=== PATIENT | male | born 1995 | race Caucasian/White ===

== ENCOUNTER 2016-09-19 23:16 | Emergency (ER) | payer BC ==
[2016-09-19] MEDS ORDERED: PROPARACAINE 0.5% OPHTH DROPS 15 ML BTL RIGHT EYE STA (23:55)
[2016-09-20] MEDS ORDERED: SODIUM CHLORIDE 0.9% 1,000 ML IV STA (00:09)
[2016-09-20] MEDS ORDERED: RX INFO: IV CONTRAST WAS GIVEN 1 EACH MISC MISCELLANE PRN (00:09)
--- NOTE | 2016-09-20 00:19 | ED ---
General Adult HPI - General Chief complaint: Dizziness Stated complaint: Dizzy,FB in Eye,Vomiting Time Seen by Provider: 09/19/16 23:32 Source: patient, RN notes reviewed Mode of arrival: ambulatory Limitations: no limitations - History of Present Illness Initial comments: 21-year-old male presents to the emergency department with multiple complaints. First he's noticed some irritation and itching to the right eye has been going on since Friday. Patient denies any drainage but states it's been very irritated and itchy. He complains of right lower quadrant abdominal pain. He' s had this for the last 2 days with some nausea vomiting. He did have a syncopal episode with his outside working in the heat as well. Patient states that he was concerned due to his symptoms he thought that he should be evaluated. Patient denies any fever chills cough cold. Patient states she's never had pain like this before. Patient also states that had 2 diabetic and he has not been taking his medications. Patient is concerned due to his symptoms he thought that he should be evaluated. Patient denies any recent fever , chills, shortness of breath, chest pain, back pain, nausea vomiting, numbness or tingling, dysuria or hematuria, constipation or diarrhea, headaches or visual changes, or any other current symptoms. - Related Data Home Medications Medication Instructions Recorded Confirmed Albuterol Inhaler [Ventolin Hfa 2 puff INHALATION RT-Q6H PRN 09/19/16 09/19/16 Inhaler] Atorvastatin [Lipitor] 10 mg PO HS 09/19/16 09/19/16 Levothyroxine Sodium [Synthroid] 50 mcg PO DAILY 09/19/16 09/19/16 Omeprazole [PriLOSEC] 40 mg PO DAILY PRN 09/19/16 09/19/16 metFORMIN HCL [Glucophage] 850 mg PO TID 09/19/16 09/19/16 Previous Rx's Medication Instructions Recorded Tobramycin 0.3% Ophth Oint [Tobrex 1 applic BOTH EYES TID #1 tube 09/20/16 0.3% Ophth Oint] Allergies Allergy/AdvReac Type Severity Reaction Status Date / Time amoxicillin [From Augmentin] AdvReac Nausea & Verified 09/19/16 23:32 Vomiting clavulanic acid AdvReac Nausea & Verified 09/19/16 23:32 [From Augmentin] Vomiting prednisone AdvReac Nausea & Verified 09/19/16 23:32 Vomiting Review of Systems ROS Statement: Those systems with pertinent positive or pertinent negative responses have been documented in the HPI. ROS Other: All systems not noted in ROS Statement are negative. Past Medical History Past Medical History: Diabetes Mellitus, Hyperlipidemia, Thyroid Disorder Additional Past Medical History / Comment(s): DM Type II - PO meds. History of Any Multi-Drug Resistant Organisms: None Reported Past Surgical History: Ear Surgery Additional Past Surgical History / Comment(s): oral surgery Past Psychological History: No Psychological Hx Reported Smoking Status: Current every day smoker Past Alcohol Use History: Occasional Past Drug Use History: Marijuana General Exam - General Exam Comments Initial Comments: General: The patient is awake and alert, in no distress, and does not appear acutely ill. Eye: Pupils are equal, round and reactive to light, extra-ocular movements are intact; injected conjunctivae to the right with some purulent discharge noted. No foreign body noted. brian lamp shows no acute findings. Ears, nose, mouth and throat: There are moist mucous membranes and no oral lesions. Neck: The neck is supple, there is no tenderness. Cardiovascular: There is a regular rate and rhythm. No murmur, rub or gallop is appreciated. Respiratory: Lungs are clear to auscultation, respirations are non-labored, breath sounds are equal. No wheezes, stridor, rales, or rhonchi. Gastrointestinal: Soft, non-distended, mildly tender right side of the abdomen without masses or organomegaly noted. There is no rebound or guarding present. No CVA tenderness. Bowel sounds are unremarkable. Back: There is no tenderness to palpation in the midline. There is no obvious deformity. No rashes noted. Musculoskeletal: Normal ROM, no tenderness, There is no pedal edema. There is no calf tenderness or swelling. Sensation intact. Pulses equal bilaterally 2+. Neurological: CN II-XII intact, There are no obvious motor or sensory deficits. Coordination appears grossly intact. Speech is normal. Skin: Skin is warm and dry and no rashes or lesions are noted. Psychiatric: Cooperative, appropriate mood & affect, normal judgment. Limitations: no limitations Course Vital Signs 09/19/16 09/20/16 23:19 02:00 Temperature 98.9 F 98.7 F Pulse Rate 106 H 89 Respiratory 18 16 Rate Blood Pressure 145/87 122/73 O2 Sat by Pulse 98 97 Oximetry EKG Findings - EKG Comments: EKG Findings:: normal sinus rhythm 85 bpm, normal axis, no atopy, no S-T depressions or elevations, Medical Decision Making - Medical Decision Making 21-year-old male presents with multiple complaints. This time lab work and imaging results were reviewed. We will keep the patient's right eye conjunctivitis. This time lab work CT x-rays are reviewed in electronic acute process. At this time we discussed with the patient to increase fluid intake. We discussed close follow-up with his doctor. We discussed return parameters and follow-up. Patient stated that he understood and all questions have been answered. This time he will be discharged home. - Lab Data Result diagrams: 09/20/16 00:45 09/20/16 00:45 Lab Results 09/20/16 09/20/16 09/20/16 Range/Units 00:37 00:45 00:45 WBC 10.4 (3.8-10.6) k/uL RBC 5.66 (4.30-5.90) m/uL Hgb 14.1 (13.0-17.5) gm/dL Hct 42.9 (39.0-53.0) % MCV 75.8 L (80.0-100.0) fL MCH 25.0 (25.0-35.0) pg MCHC 33.0 (31.0-37.0) g/dL RDW 14.1 (11.5-15.5) % Plt Count 222 (150-450) k/uL Neutrophils % 54 % Lymphocytes % 34 % Monocytes % 5 % Eosinophils % 4 % Basophils % 1 % Neutrophils # 5.6 (1.3-7.7) k/uL Lymphocytes # 3.5 (1.0-4.8) k/uL Monocytes # 0.5 (0-1.0) k/uL Eosinophils # 0.4 (0-0.7) k/uL Basophils # 0.1 (0-0.2) k/uL Microcytosis Slight Sodium 142 (137-145) mmol/L Potassium 4.1 (3.5-5.1) mmol/L Chloride 106 (98-107) mmol/L Carbon Dioxide 22 (22-30) mmol/L Anion Gap 14 mmol/L BUN 12 (9-20) mg/dL Creatinine 0.70 (0.66-1.25) mg/dL Est GFR (MDRD) Af Amer >60 (>60 ml/min/1.73 sqM) Est GFR (MDRD) Non-Af >60 (>60 ml/min/1.73 sqM) Glucose 123 H (74-99) mg/dL POC Glucose (mg/dL) 125 H (75-99) mg/dL POC Glu Scientific Programmer Analyst ID Heike Hooper Calcium 10.2 (8.4-10.2) mg/dL Total Bilirubin 0.4 (0.2-1.3) mg/dL AST 50 (17-59) U/L ALT 108 H (21-72) U/L Alkaline Phosphatase 83 (38-126) U/L Total Protein 7.4 (6.3-8.2) g/dL Albumin 4.9 (3.5-5.0) g/dL Amylase 33 (30-110) U/L Lipase 45 (23-300) U/L Urine Color Urine Appearance (Clear) Urine pH (5.0-8.0) Ur Specific [place] (1.001-1.035) Urine Protein (Negative) Urine Glucose (UA) (Negative) Urine Ketones (Negative) Urine Blood (Negative) Urine Nitrite (Negative) Urine Bilirubin (Negative) Urine Urobilinogen (<2.0) mg/dL Ur Leukocyte Esterase (Negative) Ur Squamous Epith Cells (0-4) /hpf Amorphous Sediment (None) /hpf Urine Mucus (None) /hpf Acetone, Qual Negative (Negative) 09/20/16 Range/Units 01:00 WBC (3.8-10.6) k/uL RBC (4.30-5.90) m/uL Hgb (13.0-17.5) gm/dL Hct (39.0-53.0) % MCV (80.0-100.0) fL MCH (25.0-35.0) pg MCHC (31.0-37.0) g/dL RDW (11.5-15.5) % Plt Count (150-450) k/uL Neutrophils % % Lymphocytes % % Monocytes % % Eosinophils % % Basophils % % Neutrophils # (1.3-7.7) k/uL Lymphocytes # (1.0-4.8) k/uL Monocytes # (0-1.0) k/uL Eosinophils # (0-0.7) k/uL Basophils # (0-0.2) k/uL Microcytosis Sodium (137-145) mmol/L Potassium (3.5-5.1) mmol/L Chloride (98-107) mmol/L Carbon Dioxide (22-30) mmol/L Anion Gap mmol/L BUN (9-20) mg/dL Creatinine (0.66-1.25) mg/dL Est GFR (MDRD) Af Amer (>60 ml/min/1.73 sqM) Est GFR (MDRD) Non-Af (>60 ml/min/1.73 sqM) Glucose (74-99) mg/dL POC Glucose (mg/dL) (75-99) mg/dL POC Glu Scientific Programmer Analyst ID Calcium (8.4-10.2) mg/dL Total Bilirubin (0.2-1.3) mg/dL AST (17-59) U/L ALT (21-72) U/L Alkaline Phosphatase (38-126) U/L Total Protein (6.3-8.2) g/dL Albumin (3.5-5.0) g/dL Amylase (30-110) U/L Lipase (23-300) U/L Urine Color Yellow Urine Appearance Cloudy (Clear) Urine pH 7.0 (5.0-8.0) Ur Specific [place] 1.019 (1.001-1.035) Urine Protein Trace H (Negative) Urine Glucose (UA) 4+ H (Negative) Urine Ketones Negative (Negative) Urine Blood Negative (Negative) Urine Nitrite Negative (Negative) Urine Bilirubin Negative (Negative) Urine Urobilinogen <2.0 (<2.0) mg/dL Ur Leukocyte Esterase Negative (Negative) Ur Squamous Epith Cells <1 (0-4) /hpf Amorphous Sediment Moderate H (None) /hpf Urine Mucus Rare H (None) /hpf Acetone, Qual (Negative) - Radiology Data Radiology results: report reviewed, image reviewed Disposition Clinical Impression: Conjunctivitis, right eye, Abdominal pain, Dehydration Disposition: HOME SELF-CARE Condition: Stable Instructions: Conjunctivitis (ED) Additional Instructions: Please use medication as discussed. Please follow up with family doctor if symptoms have not improved over the next two days. Please return to the emergency room if your symptoms increase or worsen or for any other concerns. Increase fluids in the diet Prescriptions: Tobramycin 0.3% Ophth Oint [Tobrex 0.3% Ophth Oint] 1 applic BOTH EYES TID #1 tube Referrals: Jose Palacios DO [Primary Care Provider] - 1-2 days Time of Disposition: 02:08
[2016-09-20 00:41] LABS: Glucose,Whole Blood 125 mg/dL (75-99)
[2016-09-20 01:12] LABS: ALT 108 U/L (21-72); AST 50 U/L (17-59); Alkaline Phosphatase 83 U/L (38-126); Amylase 33 U/L (30-110); Anion Gap 14 mmol/L; Basophils # (A) 0.1 k/uL (0-0.2); Basophils % (A) 1 %; Blood Urea Nitrogen 12 mg/dL (9-20); CHCM 31.8; Calcium 10.2 mg/dL (8.4-10.2); Carbon Dioxide 22 mmol/L (22-30); Chloride 106 mmol/L (98-107); Eosinophils # (A) 0.4 k/uL (0-0.7); Eosinophils % (A) 4 %; Glucose 123 mg/dL (74-99); HCT 42.9 % (39.0-53.0); HDW 2.41; HGB 14.1 gm/dL (13.0-17.5); Luc # (Auto) 0.25; Luc % (Auto) 2; Lymphocytes # (A) 3.5 k/uL (1.0-4.8); Lymphocytes % (A) 34 %; MCV 75.8 fL (80.0-100.0); Mean Platelet Volume 6.6; Microcytosis Slight; Monocytes # (A) 0.5 k/uL (0-1.0); Monocytes % (A) 5 %; Neutrophils # (A) 5.6 k/uL (1.3-7.7); Neutrophils % (A) 54 %; Non-African American GFR(MDRD) >60 (>60 ml/min/1.73 sqM); Potassium 4.1 mmol/L (3.5-5.1); RBC 5.66 m/uL (4.30-5.90); RDW 14.1 % (11.5-15.5); Sodium 142 mmol/L (137-145); Total Bilirubin 0.4 mg/dL (0.2-1.3); Total Protein 7.4 g/dL (6.3-8.2); WBC 10.4 k/uL (3.8-10.6); WBC (Perox) 10.93
[2016-09-20 01:26] LABS: Amorphous Sediment,Urine Moderate /hpf; Appearance,Urine Cloudy (Clear); Bilirubin,Urine Negative (Negative); Glucose,Urine (UA) 4+ (Negative); Ketones,Urine Negative (Negative); Leukocyte Esterase,Urine Negative (Negative); Mucus,Urine Rare /hpf; Nitrite,Urine Negative (Negative); Particle Count 19966; Protein,Urine Trace (Negative); Specific Gravity,Urine 1.019 (1.001-1.035); Squamous Epithelial Cell,Urine <1 /hpf (0-4); UA Billing (MACRO vs. MICRO) MICRO; Urobilinogen,Urine <2.0 mg/dL (<2.0)
[2016-09-20 02:01] VITALS: BP 122/73; PULSE 89; RESP 16; TEMP 98.7
--- NOTE | 2016-09-20 02:04 | CT ---
EXAM: CT Abdomen and Pelvis With Intravenous Contrast CLINICAL HISTORY: Reason: Pain TECHNIQUE: Axial computed tomography images of the abdomen and pelvis with intravenous contrast. CTDI is 32.40 mGy and DLP is 1379.60 mGy-cm. This CT exam was performed using one or more of the following dose reduction techniques: automated exposure control, adjustment of the mA and/or kV according to patient size, and/or use of iterative reconstruction technique. COMPARISON: None. FINDINGS: Lower thorax: No acute findings. ABDOMEN: Liver: Unremarkable. No mass. Gallbladder and bile ducts: Unremarkable. No calcified stones. No ductal dilation. Pancreas: Unremarkable. No mass. No ductal dilation. Spleen: Unremarkable. No splenomegaly. Adrenals: Unremarkable. No mass. Kidneys and ureters: Unremarkable. No solid mass. No hydronephrosis. Stomach and bowel: Evaluation of the bowel is limited without the use of oral contrast material. Within this limitation, no gross abnormality is seen. No obstruction. No gross mucosal thickening. Appendix: A normal appendix is visualized. PELVIS: Bladder: Unremarkable. No mass. Reproductive: Unremarkable as visualized. ABDOMEN and PELVIS: Intraperitoneal space: Unremarkable. No free air. No significant fluid collection. Bones/joints: No acute fracture. No dislocation. Soft tissues: Unremarkable. Vasculature: Unremarkable. No abdominal aortic aneurysm. Lymph nodes: Shotty mesenteric lymph nodes, of unknown significance. IMPRESSION: No acute findings.
--- NOTE | 2016-09-20 02:05 | XR ---
EXAM: XR Chest, 2 Views CLINICAL HISTORY: Reason: cough TECHNIQUE: Frontal and lateral views of the chest. COMPARISON: No relevant prior studies available. FINDINGS: Lungs: Unremarkable. No consolidation. Pleural space: Unremarkable. No pneumothorax. Heart: Unremarkable. No cardiomegaly. Mediastinum: Unremarkable. Bones/joints: Unremarkable. IMPRESSION: Normal chest x-rays.
[2016-09-20] MEDS ORDERED: KETOROLAC 60 MG/2 ML VIAL IM STA (02:09)
== END 2016-09-20 02:29 | disposition home or self-care (01) ==
LOC: EC 23:16
DX: E86.0 Dehydration (principal); H10.9 Unspecified conjunctivitis; R10.31 Right lower quadrant pain; R11.2 Nausea with vomiting, unspecified; E78.5 Hyperlipidemia, unspecified; E11.9 Type 2 diabetes mellitus without complications; E07.9 Disorder of thyroid, unspecified; F17.200 Nicotine dependence, unspecified, uncomplicated; Z79.84 Long term (current) use of oral hypoglycemic drugs; Z79.899 Other long term (current) drug therapy; Z88.0 Allergy status to penicillin; Z88.8 Allergy status to other drugs, medicaments and biological substances; Z53.20 Procedure and treatment not carried out because of patient's decision for unspecified reasons
CPT/HCPCS: 99284; 36415; 93005; 80053; 82150; 82009; 83690; 85025; 81001; 71020; 74177; Q9967

== ENCOUNTER 2016-12-04 23:53 | Emergency (ER) | payer BC ==
[2016-12-05 00:08] VITALS: RESP 20; TEMP 98.8
[2016-12-05] MEDS ORDERED: IPRATROPIUM-ALBUTEROL 3 ML NEB INHALATION STA ×2 (00:26→01:20)
--- NOTE | 2016-12-05 00:30 | ED ---
General Adult HPI - General Chief complaint: Upper Respiratory Infection Stated complaint: cough Time Seen by Provider: 12/05/16 00:03 Source: patient, RN notes reviewed Mode of arrival: ambulatory Limitations: no limitations - History of Present Illness Initial comments: Patient 21-year-old male who presents emergency room today with a chief complaint of cough congestion over the last 2 days. He does admit that he has had positive sputum production. Patient states he has felt hot and cold breaking out in sweats. Patient states that he was seated [facility] [place] recently for chest pain just 2 days ago. He states he had lab work obtained. States they could not tell him why he was exposed chest pain at this time. Patient also admits that earlier today he was at [facility] in the ER for possible overdose. He states does not have any recollection of what happened but didn't get picked up by his aunt sent home. He is unsure somebody gave him a Ambien or Xanax. Patient states he has had this cough congestion 2 days. He is denying any other complaints or symptoms at this time. Patient denies any recent back pain, abdominal pain, nausea or vomiting, numbness or tingling, dysuria or hematuria, constipation or diarrhea, headaches or visual changes, or any other complaints. - Related Data Home Medications Medication Instructions Recorded Confirmed Albuterol Inhaler [Ventolin Hfa 2 puff INHALATION RT-Q6H PRN 09/19/16 09/19/16 Inhaler] Atorvastatin [Lipitor] 10 mg PO HS 09/19/16 09/19/16 Levothyroxine Sodium [Synthroid] 50 mcg PO DAILY 09/19/16 09/19/16 Omeprazole [PriLOSEC] 40 mg PO DAILY PRN 09/19/16 09/19/16 metFORMIN HCL [Glucophage] 850 mg PO TID 09/19/16 09/19/16 Previous Rx's Medication Instructions Recorded Tobramycin 0.3% Ophth Oint [Tobrex 1 applic BOTH EYES TID #1 tube 09/20/16 0.3% Ophth Oint] Albuterol Inhaler [Ventolin Hfa 1 - 2 puff INHALATION Q4-6H PRN #1 12/05/16 Inhaler] inhaler Albuterol Nebulized [Ventolin 2.5 mg INHALATION Q4H PRN 10 Days 12/05/16 Nebulized] guaiFENesin 400 mg PO Q4-6H #30 tablet 12/05/16 Allergies Allergy/AdvReac Type Severity Reaction Status Date / Time amoxicillin [From Augmentin] AdvReac Nausea & Verified 12/05/16 00:04 Vomiting clavulanic acid AdvReac Nausea & Verified 12/05/16 00:04 [From Augmentin] Vomiting prednisone AdvReac Nausea & Verified 12/05/16 00:04 Vomiting Review of Systems ROS Statement: Those systems with pertinent positive or pertinent negative responses have been documented in the HPI. ROS Other: All systems not noted in ROS Statement are negative. Past Medical History Past Medical History: Diabetes Mellitus, Hyperlipidemia, Thyroid Disorder Additional Past Medical History / Comment(s): DM Type II - PO meds. History of Any Multi-Drug Resistant Organisms: None Reported Past Surgical History: Ear Surgery Additional Past Surgical History / Comment(s): oral surgery Past Psychological History: No Psychological Hx Reported Smoking Status: Current every day smoker Past Alcohol Use History: Occasional Past Drug Use History: Marijuana General Exam Limitations: no limitations Course Vital Signs 12/05/16 12/05/16 12/05/16 00:04 00:36 00:46 Temperature 98.8 F Pulse Rate 130 H 142 H 131 H Respiratory 20 Rate Blood Pressure 154/82 O2 Sat by Pulse 99 Oximetry 12/05/16 12/05/16 01:39 01:47 Temperature Pulse Rate 95 98 Respiratory Rate Blood Pressure O2 Sat by Pulse Oximetry EKG Findings - EKG Comments: EKG Findings:: EKG performed at 033: Shows sinus tachycardia are 19 bpm. ND interval 138. QRS 96. QT/QTC 322/452. No acute ST changes. Medical Decision Making - Medical Decision Making Patient's chest x-rays negative for any acute abnormality. No sign of pneumonia. Patient refused lab work urine emergency room. He is tachycardic. We did attempt to receive medical reports from both [facility] and [facility] which patient states she's been too recently and just last few days. Neither facility has faxed back these reports. Patient's refusing lab work here. He was agreeable to breathing treatments. He admits to feeling better after breathing treatments. He has been tachycardic with a normal sinus rhythm here in the ER. Patient admits to both feeling feverish and chills. Patient refusing any further workup or evaluation of the breathing treatments. He states he is ALLERGIC to steroids of prednisone. He does have a breathing machine at home. He'll be given a prescription for a few oral to continue at home every 4-6 hours. 2 falls family doctor in the next 1-2 days. Advised return here to the emergency room symptoms increase or worsen. - Lab Data Lab Results 12/05/16 Range/Units 01:09 Urine Color Light Yellow Urine Appearance Clear (Clear) Urine pH 6.0 (5.0-8.0) Ur Specific [place] 1.020 (1.001-1.035) Urine Protein Negative (Negative) Urine Glucose (UA) 4+ H (Negative) Urine Ketones Trace H (Negative) Urine Blood Negative (Negative) Urine Nitrite Negative (Negative) Urine Bilirubin Negative (Negative) Urine Urobilinogen <2.0 (<2.0) mg/dL Ur Leukocyte Esterase Negative (Negative) Urine Opiates Screen Not Detected (NotDetected) Ur Oxycodone Screen Not Detected (NotDetected) Urine Methadone Screen Not Detected (NotDetected) Ur Propoxyphene Screen Not Detected (NotDetected) Ur Barbiturates Screen Not Detected (NotDetected) U Tricyclic Antidepress Not Detected (NotDetected) Ur Phencyclidine Scrn Not Detected (NotDetected) Ur Amphetamines Screen Not Detected (NotDetected) U Methamphetamines Scrn Not Detected (NotDetected) U Benzodiazepines Scrn Detected H (NotDetected) Urine Cocaine Screen Not Detected (NotDetected) U Marijuana (THC) Screen Detected H (NotDetected) Disposition Clinical Impression: Acute bronchitis Disposition: HOME SELF-CARE Condition: Good Instructions: Upper Respiratory Infection (ED) Additional Instructions: Please use medication as discussed. Please follow-up with family doctor in the next 2 days of symptoms have not improved. Please return to emergency room if the symptoms increase or worsen or for any other concerns. Prescriptions: Albuterol Inhaler [Ventolin Hfa Inhaler] 1 - 2 puff INHALATION Q4-6H PRN #1 inhaler PRN Reason: Cough Albuterol Nebulized [Ventolin Nebulized] 2.5 mg INHALATION Q4H PRN 10 Days PRN Reason: Cough guaiFENesin 400 mg PO Q4-6H #30 tablet Referrals: Fronataliolo,Jose, DO [Primary Care Provider] - 1-2 days Time of Disposition: 02:09
[2016-12-05] MEDS ORDERED: SODIUM CHLORIDE 0.9% 1,000 ML IV STA ×2 (00:56)
--- NOTE | 2016-12-05 01:05 | XR ---
EXAMINATION TYPE: XR chest 2V DATE OF EXAM: 12/05/2016 COMPARISON: 09/20/2016 HISTORY: Cough TECHNIQUE: Frontal and lateral views of the chest are obtained. FINDINGS: Heart and mediastinum are normal. Lungs are clear. Diaphragm is normal. Bony thorax appear s normal. IMPRESSION: Normal chest. No change.
[2016-12-05 01:44] LABS: Appearance,Urine Clear (Clear); Bilirubin,Urine Negative (Negative); Glucose,Urine (UA) 4+ (Negative); Ketones,Urine Trace (Negative); Leukocyte Esterase,Urine Negative (Negative); Nitrite,Urine Negative (Negative); Protein,Urine Negative (Negative); UA Billing (MACRO vs. MICRO) CHEM; Urobilinogen,Urine <2.0 mg/dL (<2.0)
[2016-12-05 02:09] VITALS: BP 132/61; PULSE 116
== END 2016-12-05 02:27 | disposition home or self-care (01) ==
LOC: EC 23:53
DX: J20.9 Acute bronchitis, unspecified (principal); R00.0 Tachycardia, unspecified; E78.5 Hyperlipidemia, unspecified; E11.9 Type 2 diabetes mellitus without complications; E07.9 Disorder of thyroid, unspecified; F17.200 Nicotine dependence, unspecified, uncomplicated; Z79.84 Long term (current) use of oral hypoglycemic drugs; Z79.899 Other long term (current) drug therapy; Z88.0 Allergy status to penicillin; Z88.8 Allergy status to other drugs, medicaments and biological substances; Z53.20 Procedure and treatment not carried out because of patient's decision for unspecified reasons
CPT/HCPCS: 71020; 80306; 81003; 93005; 94640; 99284

== ENCOUNTER 2018-02-25 00:53 | Emergency (ER) | payer BC ==
[2018-02-25 01:00] VITALS: RESP 16; TEMP 98.4
[2018-02-25] MEDS ORDERED: SODIUM CHLORIDE 0.9% 1,000 ML IV STA (01:17)
[2018-02-25] MEDS ORDERED: KETOROLAC 30 MG/ML 1 ML VIAL IVP STA (01:18)
--- NOTE | 2018-02-25 01:44 | XR ---
EXAMINATION TYPE: XR chest 2V DATE OF EXAM: 02/25/2018 COMPARISON: 12/05/2016 HISTORY: Chest pain TECHNIQUE: Frontal and lateral views of the chest are obtained. FINDINGS: Heart and mediastinum are normal. Lungs are clear. Diaphragm is normal. Bony thorax appear s normal. There are chest leads. IMPRESSION: Normal chest. No change.
[2018-02-25 01:58] LABS: Basophils # (A) 0.1 k/uL (0-0.2); Basophils % (A) 1 %; Eosinophils # (A) 0.5 k/uL (0-0.7); Eosinophils % (A) 5 %; HCT 45.1 % (39.0-53.0); HGB 13.9 gm/dL (13.0-17.5); Lymphocytes # (A) 3.3 k/uL (1.0-4.8); Lymphocytes % (A) 36 %; MCH 23.1 pg (25.0-35.0); MCHC 30.7 g/dL (31.0-37.0); Mean Platelet Volume 6.9; Microcytosis Slight; Monocytes # (A) 0.5 k/uL (0-1.0); Monocytes % (A) 5 %; Neutrophils # (A) 4.5 k/uL (1.3-7.7); Neutrophils % (A) 49 %; Platelet Count 256 k/uL (150-450); RBC 6.01 m/uL (4.30-5.90); WBC 9.2 k/uL (3.8-10.6)
[2018-02-25 02:06] LABS: INR 0.9 (<1.2); Partial Thromboplastin Time 25.2 sec (22.0-30.0); Prothrombin Time 10.1 sec (9.0-12.0)
[2018-02-25 02:07] LABS: ALT 77 U/L (21-72); AST 40 U/L (17-59); Albumin 4.6 g/dL (3.5-5.0); Alkaline Phosphatase 80 U/L (38-126); Anion Gap 11 mmol/L; Blood Urea Nitrogen 15 mg/dL (9-20); Calcium 9.9 mg/dL (8.4-10.2); Carbon Dioxide 25 mmol/L (22-30); Chloride 102 mmol/L (98-107); Glucose 253 mg/dL (74-99); Magnesium 1.8 mg/dL (1.6-2.3); Potassium 4.2 mmol/L (3.5-5.1); Sodium 138 mmol/L (137-145); Total Bilirubin 0.2 mg/dL (0.2-1.3); Total Protein 7.3 g/dL (6.3-8.2)
[2018-02-25 02:11] LABS: Creatine Kinase 101 U/L (55-170)
[2018-02-25 02:24] LABS: Creatine Kinase MB <0.2 ng/mL (0.0-2.4); Troponin I <0.012 ng/mL (0.000-0.034)
--- NOTE | 2018-02-25 02:30 | ED ---
Chest Pain HPI - General Source: patient, EMS, RN notes reviewed, old records reviewed Mode of arrival: ambulatory Limitations: no limitations <Payal Reyes - Last Filed: 02/25/18 03:31> <Adriana Fonseca - Last Filed: 02/27/18 04:21> - General Chief Complaint: Chest Pain Stated Complaint: Near Syncope Time Seen by Provider: 02/25/18 00:56 - History of Present Illness Initial Comments: Patient is a 22-year-old male presents today with his girlfriend with chief complaint of nursing blood cell. Patient reports that yesterday he was having some episodes of chest pain, Patient given an inhaler and aspirin by his mother. He reports that he started to feel somewhat better at the time. He states that today he was in the shower and had multiple near syncopal episodes and his girlfriend caught him. He states that he is having some chest pain, relates it to be a 9 out of 10. Denies any shortness breath or cough. Patient has history of diabetes, has been out of his metformin for the past few months. Patient has a positive family history of heart disease, father at age 48 from [place]. Patient is a smoker. (Payal Reyes) - Related Data Home Medications Medication Instructions Recorded Confirmed Albuterol Inhaler [Ventolin Hfa 2 puff INHALATION RT-Q6H PRN 09/19/16 09/19/16 Inhaler] Atorvastatin [Lipitor] 10 mg PO HS 09/19/16 09/19/16 Levothyroxine Sodium [Synthroid] 50 mcg PO DAILY 09/19/16 09/19/16 Omeprazole [PriLOSEC] 40 mg PO DAILY PRN 09/19/16 09/19/16 metFORMIN HCL [Glucophage] 850 mg PO TID 09/19/16 09/19/16 Previous Rx's Medication Instructions Recorded Tobramycin 0.3% Ophth Oint [Tobrex 1 applic BOTH EYES TID #1 tube 09/20/16 0.3% Ophth Oint] Albuterol Inhaler [Ventolin Hfa 1 - 2 puff INHALATION Q4-6H PRN #1 12/05/16 Inhaler] inhaler Albuterol Nebulized [Ventolin 2.5 mg INHALATION Q4H PRN 10 Days 12/05/16 Nebulized] nebu guaiFENesin 400 mg PO Q4-6H #30 tablet 12/05/16 metFORMIN HCL [Glucophage] 850 mg PO TID #20 tab 02/25/18 Allergies Allergy/AdvReac Type Severity Reaction Status Date / Time amoxicillin [From Augmentin] AdvReac Nausea & Verified 02/25/18 01:00 Vomiting clavulanic acid AdvReac Nausea & Verified 02/25/18 01:00 [From Augmentin] Vomiting prednisone AdvReac Nausea & Verified 02/25/18 01:00 Vomiting Review of Systems ROS Other: All systems not noted in ROS Statement are negative. <Payal Reyes - Last Filed: 02/25/18 03:31> ROS Other: All systems not noted in ROS Statement are negative. <Adriana Fonseca - Last Filed: 02/27/18 04:21> ROS Statement: Those systems with pertinent positive or pertinent negative responses have been documented in the HPI. EKG Findings - EKG Comments: EKG Findings:: EKG performed at 0 37 shows sinus tachycardia and complete her primary despite. Nonspecific T-wave abnormality. Abnormal EKG noted. Ventricular rate of 102 bpm. Was 140 ms. QRS duration is 102 ms. QT QTc is 344/448 ms. <Payal Reyes - Last Filed: 02/25/18 03:31> Past Medical History Past Medical History: Diabetes Mellitus, Hyperlipidemia, Thyroid Disorder Additional Past Medical History / Comment(s): DM Type II - PO meds. History of Any Multi-Drug Resistant Organisms: None Reported Past Surgical History: Ear Surgery Additional Past Surgical History / Comment(s): oral surgery Past Psychological History: No Psychological Hx Reported Smoking Status: Current every day smoker Past Alcohol Use History: Occasional Past Drug Use History: Marijuana <Payal Reyes - Last Filed: 02/25/18 03:31> General Exam Limitations: no limitations General appearance: alert, in no apparent distress Head exam: Present: atraumatic, normocephalic, normal inspection Eye exam: Present: normal appearance, PERRL, EOMI. Absent: scleral icterus, conjunctival injection, periorbital swelling ENT exam: Present: normal exam, mucous membranes moist Neck exam: Present: normal inspection. Absent: tenderness, meningismus, lymphadenopathy Respiratory exam: Present: normal lung sounds bilaterally. Absent: respiratory distress, wheezes, rales, rhonchi, stridor Cardiovascular Exam: Present: regular rate, normal rhythm, normal heart sounds. Absent: systolic murmur, diastolic murmur, rubs, gallop, clicks GI/Abdominal exam: Present: soft, normal bowel sounds. Absent: distended, tenderness, guarding, rebound, rigid Extremities exam: Present: normal inspection, full ROM, normal capillary refill. Absent: tenderness, pedal edema, joint swelling, calf tenderness Back exam: Present: normal inspection Neurological exam: Present: alert, oriented X3, CN II-XII intact Psychiatric exam: Present: normal affect Skin exam: Present: warm, dry, intact, normal color. Absent: rash <Payal Reyes - Last Filed: 02/25/18 03:31> <Adriana Fonseca - Last Filed: 02/27/18 04:21> - General Exam Comments Initial Comments: 22-year-old male. Alert and oriented 3. No acute distress. (Payal Reyes) Course <Payal Reyes - Last Filed: 02/25/18 03:31> <Adriana Fonseca - Last Filed: 02/27/18 04:21> Vital Signs 02/25/18 02/25/18 00:58 04:00 Temperature 98.4 F Pulse Rate 109 H 88 Respiratory 16 16 Rate Blood Pressure 151/92 117/72 O2 Sat by Pulse 95 98 Oximetry - Reevaluation(s) Reevaluation #1: 02/25/18 03:22 Patient was evaluated time sleeping. Appears in no acute distress. (Payal Reyes) Chest Pain MDM <Payal Reyes - Last Filed: 02/25/18 03:31> <Adriana Fonseca - Last Filed: 02/27/18 04:21> - MDM Patient is a 22 year old male, presents for dizziness and near syncope. He complains of chest pain. Patient EKG shows no acute changes. Patient symptoms have nuvia for the past 2 days. For the length of time of his symptoms, patient has normal troponin. Glucose is elevated, patient needs to restart metformin. Patient will be given short perscription. Discussed Normal CXR, and otherwise normal labs. Discussed that patient can rest, remain hydrated. On reevaluation, patient is sleeping. Patient at this time will follow up with PCP. Return to ED if any alarming signs or symptoms occur. (Payal Reyes) I was available for consultation in the emergency department. The history and physical exam were done by the midlevel provider. I was consulted for this patient's care. I reviewed the case with the midlevel provider and based on their presentation of the patient, I agree with the assessment, medical decision making and plan of care as documented. Chart was dictated using [employer] dictation software. Attempts were made to correct any dictation errors however some typographical errors may persist. ( Adriana Fonseca) Disposition Is patient prescribed a controlled substance at d/c from ED?: No Time of Disposition: 03:42 <Payal Reyes - Last Filed: 02/25/18 03:31> <Adriana Fonseca - Last Filed: 02/27/18 04:21> Clinical Impression: Dizziness, Hyperglycemia Disposition: HOME SELF-CARE Condition: Good Instructions: Diabetic Hyperglycemia (ED) Additional Instructions: Patient advised to have close follow-up with primary care physician. Resume metformin. Rest, remain hydrated. Follow-up with primary care physician. Return to emergency department if any alarming signs or symptoms occur. Prescriptions: metFORMIN HCL [Glucophage] 850 mg PO TID #20 tab Referrals: None,Stated [Primary Care Provider] - 1-2 days Rosi Tello MD [STAFF PHYSICIAN] - 1-2 days
[2018-02-25 03:13] LABS: Appearance,Urine Clear (Clear); Bilirubin,Urine Negative (Negative); Blood,Urine Negative (Negative); Color,Urine Yellow; Glucose,Urine (UA) 4+ (Negative); Ketones,Urine 1+ (Negative); Leukocyte Esterase,Urine Negative (Negative); Nitrite,Urine Negative (Negative); Protein,Urine Trace (Negative); Specific Gravity,Urine 1.033 (1.001-1.035)
[2018-02-25 03:24] LABS: Amphetamine Screen,Urine Not Detected (NotDetected); Barbiturate Screen,Urine Not Detected (NotDetected); Benzodiazepines Screen,Urine Not Detected (NotDetected); Cocaine Screen,Urine Not Detected (NotDetected); Methadone Screen, Urine Not Detected (NotDetected); Opiate Screen,Urine Not Detected (NotDetected); Oxycodone Screen, Urine Not Detected (NotDetected); Phencyclidine Screen,Urine Not Detected (NotDetected); Tricyclic Antidepressant,Urine Not Detected (NotDetected); Urn Cannabinoid Scrn Detected (NotDetected)
[2018-02-25 04:06] VITALS: BP 117/72; PULSE 88
== END 2018-02-25 04:01 | disposition home or self-care (01) ==
LOC: EC 00:53
DX: E11.65 Type 2 diabetes mellitus with hyperglycemia (principal); R42 Dizziness and giddiness; R55 Syncope and collapse; E78.5 Hyperlipidemia, unspecified; E07.9 Disorder of thyroid, unspecified; F17.200 Nicotine dependence, unspecified, uncomplicated; Z79.84 Long term (current) use of oral hypoglycemic drugs; Z79.899 Other long term (current) drug therapy; Z88.0 Allergy status to penicillin; Z88.1 Allergy status to other antibiotic agents; Z88.8 Allergy status to other drugs, medicaments and biological substances
CPT/HCPCS: 36415; 93005; 80053; 82550; 82553; 83735; 84443; 84484; 85025; 85610; 85730; 81003; 80306; 71046; 99285; 96374; 96361; J1885

== ENCOUNTER 2018-03-17 21:36 | Emergency (ER) | payer BC ==
[2018-03-17 21:50] VITALS: PULSE 63; RESP 18; TEMP 98.4
[2018-03-17] MEDS ORDERED: KETOROLAC 60 MG/2 ML VIAL IM STA (21:58)
[2018-03-17] MEDS ORDERED: DIAZEPAM 5 MG/ML 2 ML INJ IM ONE (21:58)
--- NOTE | 2018-03-17 22:33 | ED ---
Back Pain HPI - General Chief Complaint: Back Pain/Injury Stated Complaint: Back pain, hard to walk Time Seen by Provider: 03/17/18 21:52 Source: patient Limitations: no limitations - History of Present Illness Initial Comments: 22-year-old male with PMH of DMII on oral medications presenting today for chief complaint of low back pain. Patient states that a week ago he tried lifting a large television, when he stood up he noticed pain in his lower back. Patient states that the pain persisted for the past week, however it began to improve. Today he attempted to throw the same TV outside, noticing pain in his lumbar spine again this time increased. Patient states that the pain increases with ambulation. Patient denies any numbness, tingling, loss sensation lower extremities, muscle weakness, loss of bowel bladder control, urinary retention, perineal numbness, fever, chills, night sweats, or drug use, history of cancer, falls, direct trauma to the back. Patient denies taking medications prior to arrival to emergency department. On arrival, patient appears well. Remainder of ROS negative, patient denies any recent fever, chills, shortness of breath, chest pain, back pain, abdominal pain, nausea or vomiting, numbness or tingling , dysuria or hematuria, constipation or diarrhea, headaches or visual changes, or any other complaints. - Related Data Previous Rx's Medication Instructions Recorded Albuterol Inhaler [Ventolin Hfa 1 - 2 puff INHALATION Q4-6H PRN #1 12/05/16 Inhaler] inhaler Albuterol Nebulized [Ventolin 2.5 mg INHALATION Q4H PRN 10 Days 12/05/16 Nebulized] nebu metFORMIN HCL [Glucophage] 850 mg PO TID #20 tab 02/25/18 Ibuprofen 800 mg PO Q8H PRN 7 Days #21 tablet 03/17/18 Orphenadrine [Norflex] 100 mg PO Q12H 3 Days #6 tablet.er 03/17/18 Allergies Allergy/AdvReac Type Severity Reaction Status Date / Time amoxicillin [From Augmentin] AdvReac Nausea & Verified 03/17/18 02:42 Vomiting clavulanic acid AdvReac Nausea & Verified 03/17/18 02:42 [From Augmentin] Vomiting prednisone AdvReac Nausea & Verified 03/17/18 02:42 Vomiting Review of Systems ROS Statement: Those systems with pertinent positive or pertinent negative responses have been documented in the HPI. ROS Other: All systems not noted in ROS Statement are negative. Past Medical History Past Medical History: Diabetes Mellitus, Hyperlipidemia, Thyroid Disorder Additional Past Medical History / Comment(s): DM Type II - PO meds. History of Any Multi-Drug Resistant Organisms: None Reported Past Surgical History: Ear Surgery Additional Past Surgical History / Comment(s): oral surgery, Past Psychological History: No Psychological Hx Reported Smoking Status: Current every day smoker Past Alcohol Use History: Occasional Past Drug Use History: Marijuana General Exam - General Exam Comments Initial Comments: General: The patient is awake and alert, in no distress, and does not appear acutely ill. Eye: Pupils are equal, round and reactive to light, extra-ocular movements are intact. No nystagmus. There is normal conjunctiva bilaterally. No signs of icterus. Ears, nose, mouth and throat: There are moist mucous membranes and no oral lesions. Cardiovascular: There is a regular rate and rhythm. No murmur, rub or gallop is appreciated. Respiratory: Lungs are clear to auscultation, respirations are non-labored, breath sounds are equal. No wheezes, stridor, rales, or rhonchi. Gastrointestinal: Soft, non-distended, non-tender abdomen without masses or organomegaly noted. There is no rebound or guarding present. No CVA tenderness. Bowel sounds are unremarkable.] Musculoskeletal: Normal inspection lumbar spine. Patient is able to forward flex and hyperextend however not fully to her spine pain. Patient has mild midline tenderness to palpation of lumbar spine, most of his pain is paravertebral and reproducible palpation. Normal ROM of the LE b/l. Strength 5 /5 of the lower extremities equally bilaterally at the hips, knees and ankles. No evidence of foot drop or weakness.. Sensation intact of the lower extremities equally bilaterally. No saddle anesthesia. DP pulses equal bilaterally 2+. Pt is able to heel and toe walk. +2 or 5 deep tendon reflexes of the lower extremities including patellar and Achilles. It is our myoclonus or fasciculations. Muscle spasm to palpation of the lumbar spine muscles. Neurological: A&O x 3. CN II-XII intact, There are no obvious motor or sensory deficits. Coordination appears grossly intact. Speech is normal. Skin: Skin is warm and dry and no rashes or lesions are noted. Psychiatric: Cooperative, appropriate mood & affect, normal judgment. Limitations: no limitations Course Vital Signs 03/17/18 21:46 Temperature 98.4 F Pulse Rate 63 Respiratory 18 Rate O2 Sat by Pulse 96 Oximetry Medical Decision Making - Medical Decision Making 22-year-old male with chief complaint of low back pain concerning for low back strain. Patient states he lifted an object causing low back pain. Most pain on a physical examinations paravertebral and there are palpable muscle spasms. Patient be given by mouth Valium and Toradol for pain management. X-rays are obtained given mild midline tenderness to palpation of lumbar spine. These revealed normal lumbar imaging. There are no signs concerning for cauda equina at this time, strength maintain of lower extremities, no evidence of loss sensation lower extremities, no concerning history. Upon reevaluation patient stated. Patient will be given follow-up with orthopedic surgery for any persistent symptoms, I would like patient to follow-up with primary care provider next 1-2 days. I recommended resting back the next 1-2 days with icing and heating area 20 minutes at a time 3 times a day. In addition I recommend patient take ibuprofen 800 mg as well as prednisone for low back strain. Patient is agreeable with plan as well as discharge. Patient denied questions. Return parameters were discussed at length the patient verbalizes understanding. Patient discharged in stable condition appearing well Disposition Clinical Impression: Low back strain Disposition: HOME SELF-CARE Condition: Good Instructions: Low Back Strain (ED), Acute Low Back Pain (ED) Additional Instructions: Please use medication as discussed. Please follow-up with family doctor in the next 2 days Please follow-up with orthopedic surgery in the next 2 weeks if symptoms persist. Please return to emergency room if the symptoms increase or worsen or for any other concerns as discussed. Prescriptions: Ibuprofen 800 mg PO Q8H PRN 7 Days #21 tablet PRN Reason: Pain Orphenadrine [Norflex] 100 mg PO Q12H 3 Days #6 tablet.er Is patient prescribed a controlled substance at d/c from ED?: No Referrals: None,Stated [Primary Care Provider] - 1-2 days [facility] - 1-2 days Chandan Abreu MD [STAFF PHYSICIAN] - 1-2 days Time of Disposition: 22:53
--- NOTE | 2018-03-18 03:12 | XR ---
EXAMINATION TYPE: XR lumbar spine 2 or 3V DATE OF EXAM: 03/17/2018 COMPARISON: NONE HISTORY: Low back pain TECHNIQUE: 3 views FINDINGS: Lumbar vertebra have normal spacing and alignment. Posterior elements are intact. Sacroilia c joints appear normal. IMPRESSION: Normal lumbar spine.
== END 2018-03-17 23:40 | disposition home or self-care (01) ==
LOC: EC 21:36
DX: S39.012A Strain of muscle, fascia and tendon of lower back, initial encounter (principal); E11.9 Type 2 diabetes mellitus without complications; F17.200 Nicotine dependence, unspecified, uncomplicated; Z88.0 Allergy status to penicillin; Z88.8 Allergy status to other drugs, medicaments and biological substances; Z79.84 Long term (current) use of oral hypoglycemic drugs; X50.9XXA Other and unspecified overexertion or strenuous movements or postures, initial encounter
CPT/HCPCS: 72100; 99283; 96372 ×2; J3360; J1885

== ENCOUNTER 2018-03-25 22:35 | Emergency (ER) | payer BC ==
[2018-03-25 22:46] VITALS: BP 130/87; PULSE 95; RESP 20; TEMP 98.4
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
[2018-03-25 23:31] LABS: Basophils # (A) 0.1 k/uL (0-0.2); Basophils % (A) 1 %; Eosinophils # (A) 0.6 k/uL (0-0.7); Eosinophils % (A) 5 %; HCT 46.3 % (39.0-53.0); HGB 14.9 gm/dL (13.0-17.5); Lymphocytes # (A) 3.5 k/uL (1.0-4.8); Lymphocytes % (A) 32 %; MCHC 32.1 g/dL (31.0-37.0); Mean Platelet Volume 6.6; Microcytosis Slight; Monocytes # (A) 0.6 k/uL (0-1.0); Monocytes % (A) 5 %; Neutrophils % (A) 54 %; Platelet Count 237 k/uL (150-450); RBC 6.18 m/uL (4.30-5.90); RDW 14.1 % (11.5-15.5); WBC 11.1 k/uL (3.8-10.6)
[2018-03-25 23:36] LABS: ALT 94 U/L (21-72); AST 46 U/L (17-59); Albumin 4.9 g/dL (3.5-5.0); Alcohol <10 mg/dL; Alkaline Phosphatase 74 U/L (38-126); Amylase 53 U/L (30-110); Anion Gap 14 mmol/L; Blood Urea Nitrogen 22 mg/dL (9-20); Calcium 10.2 mg/dL (8.4-10.2); Carbon Dioxide 23 mmol/L (22-30); Chloride 102 mmol/L (98-107); Glucose 188 mg/dL (74-99); INR 0.9 (<1.2); Lipase 47 U/L (23-300); Partial Thromboplastin Time 24.2 sec (22.0-30.0); Potassium 4.5 mmol/L (3.5-5.1); Prothrombin Time 9.8 sec (9.0-12.0); Sodium 139 mmol/L (137-145); Total Bilirubin 0.4 mg/dL (0.2-1.3); Total Protein 7.9 g/dL (6.3-8.2)
[2018-03-25 23:44] LABS: Creatine Kinase 81 U/L (55-170)
[2018-03-25 23:57] LABS: Creatine Kinase MB <0.2 ng/mL (0.0-2.4); Troponin I <0.012 ng/mL (0.000-0.034)
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
[2018-03-26 00:40] LABS: Appearance,Urine Clear (Clear); Bilirubin,Urine Negative (Negative); Blood,Urine Negative (Negative); Color,Urine Yellow; Glucose,Urine (UA) 4+ (Negative); Ketones,Urine 1+ (Negative); Leukocyte Esterase,Urine Negative (Negative); Nitrite,Urine Negative (Negative); PH, Urine 6.5 (5.0-8.0); Protein,Urine Trace (Negative); Specific Gravity,Urine 1.042 (1.001-1.035); Urobilinogen,Urine <2.0 mg/dL (<2.0)
[2018-03-26 00:50] LABS: Amphetamine Screen,Urine Not Detected (NotDetected); Barbiturate Screen,Urine Not Detected (NotDetected); Benzodiazepines Screen,Urine Detected (NotDetected); Cocaine Screen,Urine Not Detected (NotDetected); Methadone Screen, Urine Not Detected (NotDetected); Opiate Screen,Urine Not Detected (NotDetected); Oxycodone Screen, Urine Not Detected (NotDetected); Phencyclidine Screen,Urine Not Detected (NotDetected); Tricyclic Antidepressant,Urine Not Detected (NotDetected); Urn Cannabinoid Scrn Detected (NotDetected)
[2018-03-26] MEDS ORDERED: IBUPROFEN 400 MG TAB PO STA (01:22)
[2018-03-26] MEDS ORDERED: HYDROcodone/APAP 5-325MG 1 EACH TAB PO STA (01:23)
== END 2018-03-26 02:18 | disposition home or self-care (01) ==
LOC: EC 22:35
DX: S39.92XA Unspecified injury of lower back, initial encounter (principal); S19.9XXA Unspecified injury of neck, initial encounter; F17.200 Nicotine dependence, unspecified, uncomplicated; Z88.0 Allergy status to penicillin; Z88.8 Allergy status to other drugs, medicaments and biological substances; V86.05XA Driver of 3- or 4- wheeled all-terrain vehicle (ATV) injured in traffic accident, initial encounter; Y92.410 Unspecified street and highway as the place of occurrence of the external cause
CPT/HCPCS: 36415 ×2; 86900; 86901; 80053; 82150; 82550; 82553; 83605; 83690; 84484; 85025; 85610; 85730; 86850; 81003; 80306; 80320; 72170; 71045; 72128; 72125; 74177; 99284; Q9967

== ENCOUNTER 2018-04-18 23:03 | Emergency (ER) | payer BC ==
[2018-04-18 23:10] VITALS: RESP 18
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
--- NOTE | 2018-04-19 00:33 | XR ---
EXAM: XR Left Knee, 3 views CLINICAL HISTORY: Pain TECHNIQUE: Three views of the left knee. COMPARISON: No relevant prior studies available. FINDINGS: Bones/joints: No acute fracture or malalignment. Soft tissues: Unremarkable. IMPRESSION: No acute fracture or malalignment.
[2018-04-19 00:58] VITALS: BP 113/64; PULSE 83; TEMP 98.3
== END 2018-04-19 00:56 | disposition home or self-care (01) ==
LOC: EC 23:03
DX: S83.92XA Sprain of unspecified site of left knee, initial encounter (principal); E11.9 Type 2 diabetes mellitus without complications; F17.200 Nicotine dependence, unspecified, uncomplicated; Z88.0 Allergy status to penicillin; Z88.8 Allergy status to other drugs, medicaments and biological substances; Z79.84 Long term (current) use of oral hypoglycemic drugs; W22.09XA Striking against other stationary object, initial encounter; Y93.89 Activity, other specified
CPT/HCPCS: 99283

== ENCOUNTER 2018-04-21 05:31 | Emergency (ER) | payer BC ==
[2018-04-21 05:46] VITALS: BP 128/93; PULSE 89; RESP 18; TEMP 98.5
[2018-04-21] MEDS ORDERED: CLINDAMYCIN 150 MG CAP PO STA (06:15)
[2018-04-21] MEDS ORDERED: KETOROLAC 30 MG/ML 1 ML VIAL IM STA (06:15)
--- NOTE | 2018-04-21 06:22 | ED ---
ENT HPI - General Chief complaint: Dental/Oral Stated complaint: dental pain Time Seen by Provider: 04/21/18 05:47 Source: patient Mode of arrival: ambulatory Limitations: no limitations - History of Present Illness Initial comments: Glasses previously healthy 22-year-old male who presents the emergency department today for evaluation of right-sided upper molar pain. Patient reports he began having a toothache yesterday evening prior to going to bed he did take a Motrin 800 with some improvement in the pain he subsequently was able to sleep for a few hours but woke with stabbing pain in the right upper teeth. Patient doesn't currently have dental insurance and has not seen a dentist in a long period of time. He denies associated fevers chills nausea vomiting or other complaints. - Related Data Home Medications Medication Instructions Recorded Confirmed Albuterol Inhaler [Ventolin Hfa 1 - 2 puff INHALATION RT-Q4H PRN 03/25/18 Inhaler] Albuterol Nebulized [Ventolin 2.5 mg INHALATION RT-QID PRN 03/25/18 03/25/18 Nebulized] Previous Rx's Medication Instructions Recorded Ibuprofen 800 mg PO Q8H PRN 7 Days #21 tablet 03/17/18 Orphenadrine [Norflex] 100 mg PO Q12H 3 Days #6 tablet.er 03/17/18 Ibuprofen 800 mg PO TID #20 tablet 04/19/18 Clindamycin [Cleocin] 450 mg PO TID #21 capsule 04/21/18 Allergies Allergy/AdvReac Type Severity Reaction Status Date / Time amoxicillin [From Augmentin] AdvReac Nausea & Verified 04/21/18 05:46 Vomiting clavulanic acid AdvReac Nausea & Verified 04/21/18 05:46 [From Augmentin] Vomiting prednisone AdvReac Nausea & Verified 04/21/18 05:46 Vomiting Review of Systems ROS Statement: Those systems with pertinent positive or pertinent negative responses have been documented in the HPI. ROS Other: All systems not noted in ROS Statement are negative. Past Medical History Past Medical History: Diabetes Mellitus, Hyperlipidemia, Thyroid Disorder Additional Past Medical History / Comment(s): DM Type II - PO meds. History of Any Multi-Drug Resistant Organisms: None Reported Past Surgical History: Ear Surgery Additional Past Surgical History / Comment(s): oral surgery, Past Psychological History: No Psychological Hx Reported Smoking Status: Current every day smoker Past Alcohol Use History: Occasional Past Drug Use History: Marijuana General Exam - General Exam Comments Initial Comments: Physical Exam GENERAL: Patient is well-developed and well-nourished. Patient is nontoxic and well- hydrated and is in no distress. HENT: Normocephalic, Atraumatic. Pain to palpation of tooth #2 EYES: PERRL, EOMI PULMONARY: Unlabored respirations. CARDIOVASCULAR: Regular rate warm and well perfused extremities ABD: Non-distended SKIN: Skin is clear with no lesions or rashes and otherwise unremarkable. : Deferred NEUROLOGIC: Patient is alert and oriented x3. Moving all extremities spontaneously MUSCULOSKELETAL: Normal extremities with adequate strength and full range of motion. No lower extremity swelling or edema. No calf tenderness. PSYCHIATRIC: Normal psychiatric evaluation. Limitations: no limitations Limitations: no limitations Course Vital Signs 04/21/18 05:44 Temperature 98.5 F Pulse Rate 89 Respiratory 18 Rate Blood Pressure 128/93 O2 Sat by Pulse 97 Oximetry Medical Decision Making - Medical Decision Making Patient was seen and evaluated history was obtained from the patient patient with acute dental pain focus primarily into his #2. There is dental caries there is some erythema of the surrounding gums no obvious infection or abscess. I did offer the patient a dental block however he would like to avoid injections in his mouth. Patient agreeable to plan for Toradol, oral clindamycin for presumed infection follow up with dentistry and will treat with Motrin and will buy [id number] analgesia. All questions pertaining care were answered return parameters were discussed patient discharged home in stable condition Disposition Clinical Impression: Dental caries Disposition: HOME SELF-CARE Instructions (If sedation given, give patient instructions): Dental Caries (ED) Prescriptions: Clindamycin [Cleocin] 450 mg PO TID #21 capsule Is patient prescribed a controlled substance at d/c from ED?: No Referrals: None,Stated [Primary Care Provider] - 1-2 days Funmilayo Prince DDS [STAFF PHYSICIAN] - 1-2 days Jose Vinson DDS [STAFF PHYSICIAN] - 1-2 days Soraida Torres DDS [STAFF PHYSICIAN] - 1-2 days
== END 2018-04-21 06:40 | disposition home or self-care (01) ==
LOC: EC 05:31
DX: K02.9 Dental caries, unspecified (principal); F17.200 Nicotine dependence, unspecified, uncomplicated; Z98.890 Other specified postprocedural states; Z88.0 Allergy status to penicillin; Z88.8 Allergy status to other drugs, medicaments and biological substances
CPT/HCPCS: 99282; 96372; J1885

== ENCOUNTER 2018-05-13 21:33 | Emergency (ER) | payer BC ==
[2018-05-13] MEDS ORDERED: SODIUM CHLORIDE 0.9% 1,000 ML IV STA (22:32)
--- NOTE | 2018-05-13 22:52 | ED ---
General Adult HPI - General Chief complaint: Neuro Symptoms/Deficit Stated complaint: Lt side of body numb Time Seen by Provider: 05/13/18 22:05 Source: patient, RN notes reviewed, old records reviewed Mode of arrival: ambulatory Limitations: no limitations - History of Present Illness Initial comments: 22-year-old male patient past medical history of type 2 diabetes, hyperlipidemia, possible hypothyroidism presents to ED with paresthesias on the left side of his body. She reports that he has some numbness on the left side of his face, left arms, left legs, left torso. Patient does still have sensation in these areas. Patient force he has a pins and needles sensation on the left side of his body. Patient denies any recent falls or trauma. Patient denies any other symptoms. Patient denies chest pain, shortness of breath, abdominal pain, loss of bowel or bladder control, upper or lower extremity weakness. Patient is ambulatory without difficulty. Systemic: Pt denies fatigue, myalgia, fever/chills, rash. Pt denies weakness, night sweats, weight loss. Neuro: Pt denies headache, visual disturbances, syncope or pre-syncope. HEENT: Pt denies ocular discharge or irritation, otalgia, rhinorrhea, pharyngitis or notable lymphadenopathy. Cardiopulmonary: Pt denies chest pain, SOB, heart palpitations, dyspnea on exertion. Abdominal/GI: Pt denies abdominal pain, n/v/d. : Pt denies dysuria, burning w/ urination, frequency/urgency. Denies new onset urinary or bowel incontinence. MSK: Pt denies myalgia, loss of strength or function in extremities. Neuro: Pt denies new onset weakness. - Related Data Previous Rx's Medication Instructions Recorded Azithromycin [Zithromax Z-pack] 0 mg PO DIRECTED #6 tab 05/14/18 Allergies Allergy/AdvReac Type Severity Reaction Status Date / Time amoxicillin [From Augmentin] AdvReac Nausea & Verified 05/13/18 22:12 Vomiting clavulanic acid AdvReac Nausea & Verified 05/13/18 22:12 [From Augmentin] Vomiting prednisone AdvReac Nausea & Verified 05/13/18 22:12 Vomiting Review of Systems ROS Statement: Those systems with pertinent positive or pertinent negative responses have been documented in the HPI. ROS Other: All systems not noted in ROS Statement are negative. Past Medical History Past Medical History: Diabetes Mellitus, Hyperlipidemia, Thyroid Disorder Additional Past Medical History / Comment(s): DM Type II - PO meds. History of Any Multi-Drug Resistant Organisms: None Reported Past Surgical History: Ear Surgery Additional Past Surgical History / Comment(s): oral surgery, Past Psychological History: No Psychological Hx Reported Smoking Status: Current every day smoker Past Alcohol Use History: Occasional Past Drug Use History: Marijuana General Exam - General Exam Comments Initial Comments: Constitutional: NAD, AOX3, Pt has pleasant affect. HEENT: NC/AT, trachea midline, neck supple, no lymphadenopathy. Posterior pharynx non erythematous, without exudates. External ears appear normal, without discharge. Mucous membranes moist. Eyes PERRLA, EOM intact. There is no scleral icterus. No pallor noted. Cardiopulmonary: RRR, no murmurs, rubs or gallops, no JVD noted. Lungs CTAB in a nterior and posterior moreno. No peripheral edema. Abdominal exam: Abdomen soft and non-distended. Abdomen non-tender to palpation in all 4 quadrants. Bowel sounds active in LLQ. No hepatosplenomegaly. No ecchymosis Neuro: CN II-XII intact. No nuchal rigidity. Focal deficit, no facial droop. Full range of motion in upper or lower extremities, 5 out of 5 strength. MSK: No posterior calf tenderness bilaterally, homans sign negative bilaterally. Posterior tibialis and radial pulse +2 bilaterally. Sensation intact in upper and lower extremities. Full active ROM in upper and lower extremities, 5/5 stregnth. Limitations: no limitations Course Vital Signs 05/13/18 05/13/18 05/14/18 21:47 23:00 02:05 Temperature 98.7 F 98.6 F Pulse Rate 87 78 99 Respiratory 18 20 17 Rate Blood Pressure 125/78 123/65 129/90 O2 Sat by Pulse 98 99 100 Oximetry Medical Decision Making - Medical Decision Making 22-year-old male patient past medical history of type 2 diabetes, hyperlipidemia, possible hypothyroidism presents to ED with paresthesias on the left side of his body. She reports that he has some numbness on the left side of his face, left arms, left legs, left torso. Patient does still have sensation in these areas. Patient force he has a pins and needles sensation on the left side of his body. Patient denies any recent falls or trauma. Patient denies any other symptoms. Patient denies chest pain, shortness of breath, abdominal pain, loss of bowel or bladder control, upper or lower extremity weakness. Patient is ambulatory without difficulty. Patient vital signs are stable, afebrile. Physical exam did not display acute pathology. Neurologic exam within normal limits, repeat neurologic exam within normal limits. Sensation intact. Patient has full range of motion in upper or lower extremities. Laboratory investigations revealed mild leukocytosis 11.1. Correlation studies noncompressive. CMP revealed mild hyperglycemia of 241. No anion gap. Patient has mildly elevated liver enzymes AST, ALT. Troponin negative. TSH mildly elevated, T4 within normal limits. UA displayed +4 glucose. Chest x-ray revealed no acute process. Brain CT revealed no acute process. CT angiography revealed multiple thyroid nodules. CT angiography also revealed mild patchy opacities in lung, patient placed on azithromycin for po ssible pneumonia. Patient previously aware of thyroid nodules. EKG not concerning for acute ischemia. All findings were discussed with patient length. Patient to follow with primary care provider tomorrow for continued evaluation of thyroid nodules, type 2 diabetes, elevated liver enzymes. Patient to follow up with neurologist tomorrow for evaluation of paresthesias. On repeat evaluation patient stated that paresthesias had resolved. Patient is symptomatic. Case discussed in depth with Dr. Jasmine. - Lab Data Result diagrams: 05/14/18 00:20 05/13/18 22:20 Lab Results 05/13/18 05/13/18 05/13/18 Range/Units 22:20 22:20 22:20 WBC (3.8-10.6) k/uL RBC (4.30-5.90) m/uL Hgb (13.0-17.5) gm/dL Hct (39.0-53.0) % MCV (80.0-100.0) fL MCH (25.0-35.0) pg MCHC (31.0-37.0) g/dL RDW (11.5-15.5) % Plt Count (150-450) k/uL Neutrophils % % Lymphocytes % % Monocytes % % Eosinophils % % Basophils % % Neutrophils # (1.3-7.7) k/uL Lymphocytes # (1.0-4.8) k/uL Monocytes # (0-1.0) k/uL Eosinophils # (0-0.7) k/uL Basophils # (0-0.2) k/uL Microcytosis PT 10.0 (9.0-12.0) sec INR 0.9 (<1.2) APTT 21.1 L (22.0-30.0) sec Sodium 137 (137-145) mmol/L Potassium 5.1 (3.5-5.1) mmol/L Chloride 103 (98-107) mmol/L Carbon Dioxide 23 (22-30) mmol/L Anion Gap 11 mmol/L BUN 13 (9-20) mg/dL Creatinine 0.55 L (0.66-1.25) mg/dL Est GFR (CKD-EPI)AfAm >90 (>60 ml/min/1.73 sqM) Est GFR (CKD-EPI)NonAf >90 (>60 ml/min/1.73 sqM) Glucose 241 H (74-99) mg/dL Calcium 10.1 (8.4-10.2) mg/dL Total Bilirubin 0.6 (0.2-1.3) mg/dL AST 62 H (17-59) U/L ALT 101 H (21-72) U/L Alkaline Phosphatase 68 (38-126) U/L Troponin I <0.012 (0.000-0.034) ng/mL Total Protein 7.8 (6.3-8.2) g/dL Albumin 4.8 (3.5-5.0) g/dL TSH 6.550 H (0.465-4.680) mIU/L Free T4 0.92 (0.78-2.19) ng/dL Urine Color Urine Appearance (Clear) Urine pH (5.0-8.0) Ur Specific Byars (1.001-1.035) Urine Protein (Negative) Urine Glucose (UA) (Negative) Urine Ketones (Negative) Urine Blood (Negative) Urine Nitrite (Negative) Urine Bilirubin (Negative) Urine Urobilinogen (<2.0) mg/dL Ur Leukocyte Esterase (Negative) 05/14/18 05/14/18 Range/Units 00:20 01:05 WBC 11.1 H (3.8-10.6) k/uL RBC 5.52 (4.30-5.90) m/uL Hgb 13.2 (13.0-17.5) gm/dL Hct 41.1 (39.0-53.0) % MCV 74.4 L (80.0-100.0) fL MCH 23.9 L (25.0-35.0) pg MCHC 32.1 (31.0-37.0) g/dL RDW 14.2 (11.5-15.5) % Plt Count 236 (150-450) k/uL Neutrophils % 47 % Lymphocytes % 37 % Monocytes % 6 % Eosinophils % 7 % Basophils % 1 % Neutrophils # 5.2 (1.3-7.7) k/uL Lymphocytes # 4.1 (1.0-4.8) k/uL Monocytes # 0.6 (0-1.0) k/uL Eosinophils # 0.8 H (0-0.7) k/uL Basophils # 0.1 (0-0.2) k/uL Microcytosis Slight PT (9.0-12.0) sec INR (<1.2) APTT (22.0-30.0) sec Sodium (137-145) mmol/L Potassium (3.5-5.1) mmol/L Chloride (98-107) mmol/L Carbon Dioxide (22-30) mmol/L Anion Gap mmol/L BUN (9-20) mg/dL Creatinine (0.66-1.25) mg/dL Est GFR (CKD-EPI)AfAm (>60 ml/min/1.73 sqM) Est GFR (CKD-EPI)NonAf (>60 ml/min/1.73 sqM) Glucose (74-99) mg/dL Calcium (8.4-10.2) mg/dL Total Bilirubin (0.2-1.3) mg/dL AST (17-59) U/L ALT (21-72) U/L Alkaline Phosphatase (38-126) U/L Troponin I (0.000-0.034) ng/mL Total Protein (6.3-8.2) g/dL Albumin (3.5-5.0) g/dL TSH (0.465-4.680) mIU/L Free T4 (0.78-2.19) ng/dL Urine Color Yellow Urine Appearance Clear (Clear) Urine pH 6.5 (5.0-8.0) Ur Specific Byars 1.047 H (1.001-1.035) Urine Protein Trace H (Negative) Urine Glucose (UA) 4+ H (Negative) Urine Ketones Negative (Negative) Urine Blood Negative (Negative) Urine Nitrite Negative (Negative) Urine Bilirubin Negative (Negative) Urine Urobilinogen <2.0 (<2.0) mg/dL Ur Leukocyte Esterase Negative (Negative) - EKG Data -: EKG Interpreted by Me (and dr jasmine) EKG Comments: Ventricular rate 87, MI interval 1:30, QRS 100, QT/QTC 342/411. Normal sinus rhythm with sinus arrhythmia. No concern for acute ischemia. Disposition Clinical Impression: Paresthesias Disposition: HOME SELF-CARE Condition: Stable Instructions (If sedation given, give patient instructions): Paresthesia (ED) Additional Instructions: Patient to adhere to previously discussed treatment plan and will take medication(s) as directed. Patient to follow up with PCP in 1-2 days. Patient to return to ED if symptoms do not improve. Please follow-up with primary care provider consult tomorrow. Please follow-up with neurology consult tomorrow. Please take azithromycin as prescribed. Prescriptions: Azithromycin [Zithromax Z-pack] 0 mg PO DIRECTED #6 tab Is patient prescribed a controlled substance at d/c from ED?: No Referrals: None,Stated [Primary Care Provider] - 1-2 days [facility] Allyn noel [NON-STAFF] - 1-2 days Gladys Guthrie MD [Medical Doctor] - 1-2 days
[2018-05-13 23:11] LABS: Anion Gap 11 mmol/L; Blood Urea Nitrogen 13 mg/dL (9-20); Calcium 10.1 mg/dL (8.4-10.2); Carbon Dioxide 23 mmol/L (22-30); Chloride 103 mmol/L (98-107); Glucose 241 mg/dL (74-99); Sodium 137 mmol/L (137-145); Total Bilirubin 0.6 mg/dL (0.2-1.3)
[2018-05-13 23:19] LABS: Potassium 5.1 mmol/L (3.5-5.1); Total Protein 7.8 g/dL (6.3-8.2)
[2018-05-13 23:20] LABS: ALT 101 U/L (21-72); AST 62 U/L (17-59); Albumin 4.8 g/dL (3.5-5.0); Alkaline Phosphatase 68 U/L (38-126)
[2018-05-13 23:27] LABS: INR 0.9 (<1.2)
[2018-05-13 23:28] LABS: Partial Thromboplastin Time 21.1 sec (22.0-30.0)
--- NOTE | 2018-05-14 00:16 | XR ---
EXAM: XR Chest, 2 Views CLINICAL HISTORY: ITS.REASON XR Reason: altered mental status TECHNIQUE: Frontal and lateral views of the chest. COMPARISON: Chest x-ray dated 02/25/2018. FINDINGS: Lungs: Unremarkable. The lungs are clear. Pleural space: Unremarkable. No pneumothorax. Heart: Unremarkable. No cardiomegaly. Mediastinum: Unremarkable. Bones/joints: Unremarkable. IMPRESSION: Normal chest x-rays.
--- NOTE | 2018-05-14 00:20 | CT ---
EXAM: CT Head Without Intravenous Contrast CLINICAL HISTORY: ITS.REASON CT Reason: Unspecified Neuro Deficits TECHNIQUE: Axial computed tomography images of the head/brain without intravenous contrast. DLP is 1394 mGy-cm. This CT exam was performed using one or more of the following dose reduction techniques: automated exposure control, adjustment of the mA and/or kV according to patient size, and/or use of iterative reconstruction technique. COMPARISON: No relevant prior studies available. FINDINGS: Brain: Unremarkable. No acute intracranial hemorrhage. No midline shift or herniation. Ventricles: Unremarkable. No ventriculomegaly. Bones/joints: No acute fracture. Soft tissues: Unremarkable. Sinuses: Trace mucosal thickening in the right maxillary sinus. Mastoid air cells: Unremarkable as visualized. IMPRESSION: No acute intracranial findings by noncontrast CT head.
--- NOTE | 2018-05-14 00:28 | CT ---
EXAM: CT Angiography Head With Intravenous Contrast CLINICAL HISTORY: ITS.REASON CT Reason: Neuro Deficits TECHNIQUE: Axial computed tomographic angiography images of the head with intravenous contrast using CT angiography protocol. DLP is 685.5 mGy-cm. This CT exam was performed using one or more of the following dose reduction techniques: automated exposure control, adjustment of the mA and/or kV according to patient size, and/or use of iterative reconstruction technique. MIP reconstructed images were created and reviewed. COMPARISON: No relevant prior studies available. FINDINGS: Right internal carotid artery: No acute findings. No occlusion or significant stenosis. No aneurysm. Right anterior cerebral artery: There is a somewhat complex anterior cerebral artery distribution with what appears to be an essentially azygos anterior cerebral artery and two frontopolar arteries. No occlusion or significant stenosis. No aneurysm. Right middle cerebral artery: Unremarkable. No occlusion or significant stenosis. No aneurysm. Right posterior cerebral artery: Unremarkable. No occlusion or significant stenosis. No aneurysm. Right vertebral artery: Unremarkable as visualized. Left internal carotid artery: No acute findings. Intracranial segment is patent with no significant stenosis. No aneurysm. Left anterior cerebral artery: See above. Left middle cerebral artery: Unremarkable. No occlusion or significant stenosis. No aneurysm. Left posterior cerebral artery: Unremarkable. No occlusion or significant stenosis. No aneurysm. Left vertebral artery: Unremarkable as visualized. Basilar artery: Unremarkable. No occlusion or significant stenosis. No aneurysm. IMPRESSION: The available reformats are of poor quality with poor MIP reformats. This limits interpretation of this exam, especially of subtle findings. Within these limitations, there is no evidence of significant steno- occlusive lesion. EXAM: CT Angiography Neck With Intravenous Contrast CLINICAL HISTORY: ITS.REASON CT Reason: Neuro Deficits TECHNIQUE: Axial computed tomographic angiography images of the neck with intravenous contrast using CT angiography protocol. DLP is 685.5 mGy-cm. This CT exam was performed using one or more of the following dose reduction techniques: automated exposure control, adjustment of the mA and/or kV according to patient size, and/or use of iterative reconstruction technique. MIP reconstructed images were created and reviewed. COMPARISON: No relevant prior studies available. FINDINGS: VASCULATURE: Right common carotid artery: Unremarkable. No significant stenosis. No dissection or occlusion. Right internal carotid artery: Unremarkable. Extracranial segment is patent with no significant stenosis. No dissection or occlusion. Right external carotid artery: Unremarkable. No occlusion. Right vertebral artery: Unremarkable. No significant stenosis. No dissection or occlusion. Left common carotid artery: Unremarkable. No significant stenosis. No dissection or occlusion. Left internal carotid artery: Unremarkable. Extracranial segment is patent with no significant stenosis. No dissection or occlusion. Left external carotid artery: Unremarkable. No occlusion. Left vertebral artery: Unremarkable. No significant stenosis. No dissection or occlusion. NECK: Bones/joints: No acute fracture. No dislocation. Soft tissues: Unremarkable as visualized. No mass. Thyroid: Multiple thyroid nodules measuring up to 5 mm. Lung apices: Mild patchy opacities in both lung apices may be infectious or inflammatory in etiology. CAROTID STENOSIS REFERENCE USING NASCET CRITERIA: % ICA stenosis = (1 - narrowest ICA diameter/diameter of distal cervical ICA) x 100. Mild - <50% stenosis. Moderate - 50-69% stenosis. Severe - 70-94% stenosis. Near occlusion - 95-99% stenosis. Occluded - 100% stenosis. IMPRESSION: 1. No significant steno-occlusive lesion in the neck. 2. Multiple thyroid nodules measuring up to 5 mm. Further characterization with ultrasound advised. 3. Mild patchy opacities in both lung apices may be infectious or inflammatory in etiology.
[2018-05-14 00:46] LABS: Basophils # (A) 0.1 k/uL (0-0.2); Basophils % (A) 1 %; Eosinophils # (A) 0.8 k/uL (0-0.7); Eosinophils % (A) 7 %; HCT 41.1 % (39.0-53.0); HGB 13.2 gm/dL (13.0-17.5); Lymphocytes # (A) 4.1 k/uL (1.0-4.8); Lymphocytes % (A) 37 %; MCH 23.9 pg (25.0-35.0); MCHC 32.1 g/dL (31.0-37.0); MCV 74.4 fL (80.0-100.0); Mean Platelet Volume 7.2; Microcytosis Slight; Monocytes # (A) 0.6 k/uL (0-1.0); Monocytes % (A) 6 %; Neutrophils # (A) 5.2 k/uL (1.3-7.7); Neutrophils % (A) 47 %; Platelet Count 236 k/uL (150-450); RBC 5.52 m/uL (4.30-5.90); RDW 14.2 % (11.5-15.5); WBC 11.1 k/uL (3.8-10.6)
[2018-05-14 00:47] LABS: T4, Free (Free Thyroxine) 0.92 ng/dL (0.78-2.19)
[2018-05-14 01:29] LABS: Appearance,Urine Clear (Clear); Bilirubin,Urine Negative (Negative); Blood,Urine Negative (Negative); Color,Urine Yellow; Glucose,Urine (UA) 4+ (Negative); Ketones,Urine Negative (Negative); Leukocyte Esterase,Urine Negative (Negative); Nitrite,Urine Negative (Negative); PH, Urine 6.5 (5.0-8.0); Protein,Urine Trace (Negative); Urobilinogen,Urine <2.0 mg/dL (<2.0)
[2018-05-14 02:05] VITALS: BP 129/90; PULSE 99; RESP 17; TEMP 98.6
[2018-05-14 02:10] LABS: Specific Gravity,Urine 1.047 (1.001-1.035)
== END 2018-05-14 02:05 | disposition home or self-care (01) ==
LOC: EC 21:33
DX: R20.2 Paresthesia of skin (principal); E11.65 Type 2 diabetes mellitus with hyperglycemia; R74.8 Abnormal levels of other serum enzymes; D72.829 Elevated white blood cell count, unspecified; R94.6 Abnormal results of thyroid function studies; R91.8 Other nonspecific abnormal finding of lung field; F17.200 Nicotine dependence, unspecified, uncomplicated; Z88.0 Allergy status to penicillin; Z88.8 Allergy status to other drugs, medicaments and biological substances
CPT/HCPCS: 99285; 96360; 96361; 36415 ×2; 93005; 84439; 80053; 84443; 84484; 85025; 85610; 85730; 81003; 71046; 70496; 70450; 70498; Q9967

== ENCOUNTER 2018-05-17 18:57 | Emergency (ER) | payer BC ==
[2018-05-17 19:14] VITALS: TEMP 99.3
--- NOTE | 2018-05-17 19:43 | XR ---
EXAMINATION TYPE: XR chest 2V DATE OF EXAM: 05/17/2018 COMPARISON: Prior chest 05/13/2017 HISTORY: Cough TECHNIQUE: Frontal and lateral views of the chest are obtained. FINDINGS: There is no focal air space opacity, pleural effusion, or pneumothorax seen. The cardiac silhouette size is within normal limits. The osseous structures are intact. IMPRESSION: No acute cardiopulmonary process.
--- NOTE | 2018-05-17 20:23 | ED ---
General Adult HPI - General Chief complaint: Upper Respiratory Infection Stated complaint: pneumonia Time Seen by Provider: 05/17/18 19:27 Source: patient, RN notes reviewed, old records reviewed Mode of arrival: ambulatory Limitations: no limitations - History of Present Illness Initial comments: 22-year-old male patient past medical history of type 2 diabetes, asthma presents to ED with approximately 3 days of cough, congestion. Patient also reports that he has had a sore throat. Patient was diagnosed with possible pneumonia and his previous visit, placed on azithromycin. At that time patient had a chest x-ray which was read as negative, however a CT angiography revealed possible upper lobe pneumonia. Patient complains that due to the sore throat it is difficult for him to swallow the azithromycin medication. Patient also complains of productive cough with mucus, patient states that he has some pain with coughing, however denies any chest pain at baseline patient denies any shortness of breath. Patient denies all other complaints today. Systemic: Pt denies fatigue, myalgia, fever/chills, rash. Pt denies weakness, night sweats, weight loss. Neuro: Pt denies headache, visual disturbances, syncope or pre-syncope. HEENT: Pt denies ocular discharge or irritation, otalgia, rhinorrhea, pharyngitis or notable lymphadenopathy. Cardiopulmonary: Pt denies SOB, heart palpitations, dyspnea on exertion. Abdominal/GI: Pt denies abdominal pain, n/v/d. : Pt denies dysuria, burning w/ urination, frequency/urgency. Denies new onset urinary or bowel incontinence. MSK: Pt denies myalgia, loss of strength or function in extremities. Neuro: Pt denies new onset weakness, paresthesias. - Related Data Previous Rx's Medication Instructions Recorded Azithromycin [Zithromax Z-pack] 0 mg PO DIRECTED #6 tab 05/14/18 Albuterol Inhaler [Ventolin Hfa 1 - 2 puff INHALATION Q4-6H PRN #1 05/17/18 Inhaler] inhaler Albuterol Nebulized [Ventolin 2.5 mg INHALATION Q4H PRN 10 Days 05/17/18 Nebulized] nebu Allergies Allergy/AdvReac Type Severity Reaction Status Date / Time amoxicillin [From Augmentin] AdvReac Nausea & Verified 05/17/18 19:14 Vomiting clavulanic acid AdvReac Nausea & Verified 05/17/18 19:14 [From Augmentin] Vomiting Iodinated Contrast- Oral and AdvReac Nausea & Verified 05/17/18 19:15 IV Dye Vomiting prednisone AdvReac Nausea & Verified 05/17/18 19:14 Vomiting Review of Systems ROS Statement: Those systems with pertinent positive or pertinent negative responses have been documented in the HPI. ROS Other: All systems not noted in ROS Statement are negative. Past Medical History Past Medical History: Diabetes Mellitus, Hyperlipidemia, Thyroid Disorder Additional Past Medical History / Comment(s): DM Type II - PO meds, History of Any Multi-Drug Resistant Organisms: None Reported Past Surgical History: Ear Surgery Additional Past Surgical History / Comment(s): oral surgery, Past Psychological History: No Psychological Hx Reported Smoking Status: Current every day smoker Past Alcohol Use History: Occasional Past Drug Use History: Marijuana General Exam - General Exam Comments Initial Comments: Constitutional: NAD, AOX3, Pt has pleasant affect. HEENT: NC/AT, trachea midline, neck supple, no lymphadenopathy. Posterior pharynx non erythematous, without exudates. External ears appear normal, without discharge. Mucous membranes moist. Eyes PERRLA, EOM intact. There is no scleral icterus. No pallor noted. Cardiopulmonary: RRR, no murmurs, rubs or gallops, no JVD noted. Lungs CTAB in anterior and posterior moreno. No peripheral edema. HR 72 during exam. Abdominal exam: Abdomen soft and non-distended. Abdomen non-tender to palpation in all 4 quadrants. Bowel sounds active in LLQ. No hepatosplenomegaly. No ecchymosis Neuro: CN II-XII grossly intact. No nuchal rigidity. MSK: No posterior calf tenderness bilaterally, homans sign negative bilaterally. Posterior tibialis and radial pulse +2 bilaterally. Sensation intact in upper and lower extremities. Full active ROM in upper and lower extremities, 5/5 stregnth. Limitations: no limitations Course Vital Signs 05/17/18 05/17/18 05/17/18 19:11 19:58 21:07 Temperature 99.3 F Pulse Rate 107 H 98 100 Respiratory 18 16 Rate Blood Pressure 142/85 126/78 O2 Sat by Pulse 98 98 94 L Oximetry Medical Decision Making - Medical Decision Making 22-year-old male patient past medical history of type 2 diabetes, asthma presents to ED with approximately 3 days of cough, congestion. Patient also reports that he has had a sore throat. Patient was diagnosed with possible pneumonia and his previous visit, placed on azithromycin. At that time patient had a chest x-ray which was read as negative, however a CT angiography revealed possible upper lobe pneumonia. Patient complains that due to the sore throat it is difficult for him to swallow the azithromycin medication. Patient also complains of productive cough with mucus, patient states that he has some pain with coughing, however denies any chest pain at baseline patient denies any chance of breath. Patient denies all other complaints today. Patient vital signs stable, afebrile. Physical exam did not display acute pathology. Lungs CTAB. CXR revealed no acute process. Patient to use [id number] cough syrup for sore throat. Patient to use azithromycin as prescribed during previous visit. Asthma medication refilled to use as needed. Patient unable to take steroids due to ALLERGY. Patient treated for bronchitis. Case discussed with Dr. Dominguez. - Lab Data Lab Results 05/17/18 Range/Units 20:00 Group A Strep Rapid Negative (Negative) Disposition Clinical Impression: Bronchitis Disposition: HOME SELF-CARE Condition: Stable Instructions (If sedation given, give patient instructions): Acute Bronchitis (ED) Additional Instructions: Patient to adhere to previously discussed treatment plan and will take medication(s) as directed. Patient to follow up with PCP in 1-2 days. Patient to return to ED if symptoms do not improve. Please use [id number] cough syrup for sore throat. Please take azithromycin as previously prescribed. Asthma medications refilled to use as needed. Return to ER if new signs or symptoms develop or if condition worsens in any way. Prescriptions: Albuterol Inhaler [Ventolin Hfa Inhaler] 1 - 2 puff INHALATION Q4-6H PRN #1 inhaler PRN Reason: Cough Albuterol Nebulized [Ventolin Nebulized] 2.5 mg INHALATION Q4H PRN 10 Days nebu PRN Reason: Cough Is patient prescribed a controlled substance at d/c from ED?: No Referrals: None,Stated [Primary Care Provider] - 1-2 days
[2018-05-17 21:08] VITALS: BP 126/78; PULSE 100; RESP 16
== END 2018-05-17 21:05 | disposition home or self-care (01) ==
LOC: EC 18:57
DX: J40 Bronchitis, not specified as acute or chronic (principal); F17.200 Nicotine dependence, unspecified, uncomplicated; Z87.09 Personal history of other diseases of the respiratory system; Z88.0 Allergy status to penicillin; Z91.041 Radiographic dye allergy status; Z88.8 Allergy status to other drugs, medicaments and biological substances
CPT/HCPCS: 71046; 87081; 87430; 99284

== ENCOUNTER 2018-06-28 10:21 | Emergency (ER) | payer BC ==
[2018-06-28 10:33] VITALS: TEMP 98.2
--- NOTE | 2018-06-28 11:21 | ED ---
General Adult HPI - General Chief complaint: Urogenital Stated complaint: rt sided groin pain Time Seen by Provider: 06/28/18 10:33 Source: patient, RN notes reviewed Mode of arrival: ambulatory Limitations: no limitations - History of Present Illness Initial comments: This a 23-year-old male presents emergency Department chief complaint right groin pain. Patient states has been off for a few months states it's severe now. He states it's worse when he walks, twists and bends. Patient denies any swelling, redness or discoloration. Patient denies any abdominal pain or complaints including nausea vomiting diarrhea constipation no dysuria no penile discharge. - Related Data Home Medications Medication Instructions Recorded Confirmed No Known Home Medications 06/28/18 06/28/18 Allergies Allergy/AdvReac Type Severity Reaction Status Date / Time amoxicillin [From Augmentin] AdvReac Nausea & Verified 06/28/18 10:54 Vomiting clavulanic acid AdvReac Nausea & Verified 06/28/18 10:54 [From Augmentin] Vomiting Iodinated Contrast- Oral and AdvReac Nausea & Verified 06/28/18 10:54 IV Dye Vomiting prednisone AdvReac Nausea & Verified 06/28/18 10:54 Vomiting Review of Systems ROS Statement: Those systems with pertinent positive or pertinent negative responses have been documented in the HPI. ROS Other: All systems not noted in ROS Statement are negative. Past Medical History Past Medical History: Diabetes Mellitus, Hyperlipidemia, Thyroid Disorder Additional Past Medical History / Comment(s): DM Type II - PO meds, History of Any Multi-Drug Resistant Organisms: None Reported Past Surgical History: Ear Surgery Additional Past Surgical History / Comment(s): oral surgery, Past Psychological History: No Psychological Hx Reported Smoking Status: Current every day smoker Past Alcohol Use History: Occasional Past Drug Use History: Marijuana General Exam Limitations: no limitations General appearance: alert, in no apparent distress Head exam: Present: atraumatic, normocephalic, normal inspection Eye exam: Present: normal appearance, PERRL, EOMI. Absent: scleral icterus, conjunctival injection, periorbital swelling Respiratory exam: Present: normal lung sounds bilaterally. Absent: respiratory distress, wheezes, rales, rhonchi, stridor Cardiovascular Exam: Present: regular rate, normal rhythm, normal heart sounds. Absent: systolic murmur, diastolic murmur, rubs, gallop, clicks GI/Abdominal exam: Present: soft, normal bowel sounds. Absent: distended, tenderness, guarding, rebound, rigid exam: Present: normal inspection, other (Right groin tenderness no definite hernia). Absent: testicular tenderness Back exam: Absent: CVA tenderness (R), CVA tenderness (L) Skin exam: Present: warm, dry, intact, normal color. Absent: rash Course Vital Signs 06/28/18 10:29 Temperature 98.2 F Pulse Rate 107 H Respiratory 18 Rate Blood Pressure 141/93 O2 Sat by Pulse 98 Oximetry Medical Decision Making - Medical Decision Making 23-year-old male presents emergency department for groin pain. Patient has inguinal hernia on ultrasound. Urinalysis reveals 4+ glucose though he is known diabetic blood sugar 2:30. Patient is not taking his current medication he'll go home and takes medication return parameters were discussed. - Lab Data Lab Results 06/28/18 06/28/18 Range/Units 12:25 13:03 POC Glucose (mg/dL) 232 H (75-99) mg/dL POC Glu Pattern Mechanic ID Sergo Abreu Urine Color Yellow Urine Appearance Clear (Clear) Urine pH 6.5 (5.0-8.0) Ur Specific Organ 1.033 (1.001-1.035) Urine Protein 1+ H (Negative) Urine Glucose (UA) 4+ H (Negative) Urine Ketones Trace H (Negative) Urine Blood Negative (Negative) Urine Nitrite Negative (Negative) Urine Bilirubin Negative (Negative) Urine Urobilinogen 2.0 (<2.0) mg/dL Ur Leukocyte Esterase Negative (Negative) Urine WBC 2 (0-5) /hpf Ur Squamous Epith Cells 1 (0-4) /hpf Urine Mucus Moderate H (None) /hpf Disposition Clinical Impression: Inguinal hernia Disposition: HOME SELF-CARE Condition: Stable Instructions (If sedation given, give patient instructions): Inguinal Hernia (ED) Additional Instructions: Please return to the Emergency Department if symptoms worsen or any other concerns. Is patient prescribed a controlled substance at d/c from ED?: No Referrals: None,Stated [Primary Care Provider] - 1-2 days Leia Aguillon DO [Doctor of Osteopathic Medicine] - 1-2 days Time of Disposition: 13:07
--- NOTE | 2018-06-28 12:39 | US ---
EXAMINATION TYPE: US groin RT DATE OF EXAM: 06/28/2018 COMPARISON: NONE CLINICAL HISTORY: 23-year-old male Pain. Right groin pain x 2 months TECHNIQUE: Multiple sonographic images of the right groin at the site of clinical concern. Comparison images to the contralateral side. FINDINGS: Right lateral groin at patient's area of concern: 2.0 x 1.3 x 1.4cm hypoechoic non vascular area seen that does not appear to change with valsalva, unable to obtain image with iliac vessels due to later al position of area of concern Left groin for comparison: appears wnl at this time IMPRESSION: An underlying small fixed right inguinal hernia not excluded at this time.
[2018-06-28 12:43] LABS: Appearance,Urine Clear (Clear); Bilirubin,Urine Negative (Negative); Blood,Urine Negative (Negative); Color,Urine Yellow; Glucose,Urine (UA) 4+ (Negative); Ketones,Urine Trace (Negative); Leukocyte Esterase,Urine Negative (Negative); Mucus,Urine Moderate /hpf; Nitrite,Urine Negative (Negative); PH, Urine 6.5 (5.0-8.0); Protein,Urine 1+ (Negative); Specific Gravity,Urine 1.033 (1.001-1.035); Squamous Epithelial Cell,Urine 1 /hpf (0-4)
[2018-06-28 13:06] LABS: Glucose,Whole Blood 232 mg/dL (75-99)
[2018-06-28] MEDS ORDERED: ACET/COD 300 MG/30 MG STARTER PACK 6 TAB BTL PO STA (13:07)
[2018-06-28 13:31] VITALS: BP 133/76; PULSE 70; RESP 16
[2018-06-29 15:07] LABS: C. trachomatis,PCR Negative (Neg,Equiv); Chlamydia trachomatis Source Urine
[2018-06-29 15:12] LABS: N. gonorrhoeae,PCR Negative (Neg,Equiv); Neisseria Source Urine
== END 2018-06-28 13:29 | disposition home or self-care (01) ==
LOC: EC 10:21
DX: K40.90 Unilateral inguinal hernia, without obstruction or gangrene, not specified as recurrent (principal); E11.9 Type 2 diabetes mellitus without complications; F17.200 Nicotine dependence, unspecified, uncomplicated; Z88.0 Allergy status to penicillin; Z88.8 Allergy status to other drugs, medicaments and biological substances; Z91.041 Radiographic dye allergy status
CPT/HCPCS: 36415; 81001; 87491; 87591; 99284